=== PATIENT | male | born 1995 | race Caucasian/White ===

== ENCOUNTER 2017-06-05 01:44 | Emergency (ER) | payer OTHER ==
[~2017-06-05] VITALS: Ht 177.8 cm; Wt 79.6 kg
[2017-06-05 01:46] VITALS: Ht 177.8 cm; Wt 79.6 kg
--- NOTE | 2017-06-05 02:57 | RADRPT ---
PROCEDURE: XR right shoulder. CLINICAL INDICATION: Injury, pain. TECHNIQUE: AP Internal and external rotation views of the right shoulder were performed. COMPARISON: None. FINDINGS: There is normal osseous mineralization and alignment. No acute fracture or osseous lesion is identified. There are normal joints without evidence of arthritis or dislocation. The soft tissues are unremarkable. IMPRESSION: Unremarkable right shoulder. RPTAT: HRSR Physician Karin Date Time Electronically viewed and signed by Maurisio Wolff Physician on 06/05/2017 02:57 RR/
[2017-06-05] MEDS ORDERED: IBUP-1542 PO (03:09)
[2017-06-05] MEDS ORDERED: KETOROLAC 15 MG INJ IM STA (03:12)
--- NOTE | 2017-06-05 03:17 | ERD ---
ER Documentation Chief Complaint Chief Complaint right shoulder pain while playing football today HPI 22-year-old male patient with no significant past medical history presents to the ED complaining of right shoulder pain that occurred after playing football today. States that he was trying to catch a football and he accidentally fell and injured his right shoulder. Denies any fever, chills, nausea, vomiting, loss of sensation, loss of range of motion, weakness, numbness or tingling. Describes pain as achy and rates it a 8 out of 10. Denies any head or neck injuries. ROS All systems reviewed and are negative except as per history of present illness. Medications Home Meds Active Scripts Ibuprofen* (Motrin*) 600 Mg Tab, 600 MG PO Q6, #30 TAB Prov:ERICA JENNINGS PA-C 06/05/17 Allergies Allergies: Coded Allergies: No Known Allergy (Unverified , 06/05/17) PMhx/Soc History of Surgery: No Anesthesia Reaction: No Hx Neurological Disorder: No Hx Respiratory Disorders: No Hx Cardiac Disorders: No Hx Psychiatric Problems: No Hx Miscellaneous Medical Probl: No Hx Alcohol Use: No Hx Substance Use: No Hx Tobacco Use: Yes Smoking Status: Current every day smoker Physical Exam Vitals Vital Signs Date Time Temp Pulse Resp B/P Pulse Ox O2 Delivery O2 Flow Rate FiO2 06/05/17 01:46 97.2 121 20 142/83 99 Physical Exam Const: [id number]-tzsltglnh, well-nourished. In no acute distress. Head: Atraumatic, normocephalic Eyes: Normal Conjunctiva without injection ENT: Normal external ear, nose and mouth. Neck: Full range of motion. No meningismus. Resp: Clear to auscultation bilaterally. No wheezing, rhonchi, rales, or crackles. No accessory muscle use. No retractions. Cardio: Regular rate and rhythm, no murmurs Skin: No petechiae or rashes Back: No midline tenderness. No CVA tenderness. Ext: No cyanosis, or edema. Cap refill less than 2 seconds. Distal pulses intact bilaterally. Tenderness to palpation of the right humerus. No deformities noted. Patient was able to flex, extend, internally rotate and externally rotate patient's bilateral shoulders. Neur: Awake and alert. Normal gait and coordination. Muscle strength 5/5. Sensation intact bilaterally. Psych: Normal Mood and Affect Results 24 hrs Current Medications Medications (Trade) Dose Ordered Sig/Keiko Route PRN Reason Start Time Stop Time Status Last Admin Dose Admin Ketorolac Tromethamine (Toradol) 15 mg ONCE STAT IM 06/05/17 03:12 06/05/17 03:13 Cancel Procedures/MDM 22-year-old male patient with no significant past medical history presents to the ED complaining of a right shoulder injury that occurred earlier today. Patient is afebrile and nontoxic-appearing. Patient has normal vital signs. A right shoulder x-ray was ordered to further evaluate patient. Shoulder showed no evidence of fractures or dislocations. Patient likely sustained a right shoulder sprain versus contusion. Patient's extremity symptoms have stabilized while they have been evaluated in the department and are appropriate for outpatient follow up. No evidence of fractures, dislocations, compartment syndrome, neurologic injury, vascular injury, open joint, open fracture, tendon laceration, septic arthritis, osteomyelitis, DVT, foreign body, or other emergent conditions. Discharge medications: Ibuprofen Follow up with primary care physician in 1-2 days. Instructed patient to return to the ED sooner for any worsening symptoms. Patient's questions were answered. Patient understood and agreed with discharge plan. Patient discharged stable. Departure Diagnosis: Primary Impression: Shoulder injury Encounter type: initial encounter Laterality: right Qualified Code: S49.91XA - Injury of right shoulder, initial encounter Condition: Stable Patient Instructions: Shoulder Sprain , Shoulder Pain (Uncertain Cause) Referrals: COMMUNITY CLINICS YOU HAVE RECEIVED A MEDICAL SCREENING EXAM AND THE RESULTS INDICATE THAT YOU DO NOT HAVE A CONDITION THAT REQUIRES URGENT TREATMENT IN THE EMERGENCY DEPARTMENT. FURTHER EVALUATION AND TREATMENT OF YOUR CONDITION CAN WAIT UNTIL YOU ARE SEEN IN YOUR DOCTORS OFFICE WITHIN THE NEXT 1-2 DAYS. IT IS YOUR RESPONSIBILITY TO MAKE AN APPOINTMENT FOR FOLOW-UP CARE. IF YOU HAVE A PRIMARY DOCTOR --you should call your primary doctor and schedule an appointment IF YOU DO NOT HAVE A PRIMARY DOCTOR YOU CAN CALL OUR PHYSICIAN REFERRAL HOTLINE AT IF YOU CAN NOT AFFORD TO SEE A PHYSICIAN YOU CAN CHOSE FROM THE FOLLOWING [facility] [address] [facility]. [facility] [address] [facility] [address] [facility] [address] [facility]. [facility] [address] [facility] [address] [facility]. [facility] YOU HAVE RECEIVED A MEDICAL SCREENING EXAM AND THE RESULTS INDICATE THAT YOU DO NOT HAVE A CONDITION THAT REQUIRES URGENT TREATMENT IN THE EMERGENCY DEPARTMENT. FURTHER EVALUATION AND TREATMENT OF YOUR CONDITION CAN WAIT UNTIL YOU ARE SEEN IN YOUR DOCTORS OFFICE WITHIN THE NEXT 1-2 DAYS. IT IS YOUR RESPONSIBILITY TO MAKE AN APPOINTMENT FOR FOLOW-UP CARE. IF YOU HAVE A PRIMARY DOCTOR --you should call your primary doctor and schedule and appointment IF YOU DO NOT HAVE A PRIMARY DOCTOR YOU CAN CALL OUR PHYSICIAN REFERRAL HOTLINE AT . IF YOU CAN NOT AFFORD TO SEE A PHYSICIAN YOU CAN CHOSE FROM THE FOLLOWING [facility] INSTITUTIONS: [facility] [address] [place] [address] [facility] [address] [place] [address] [facility] + [facility] [address] [place] [address] [facility] URGENT CARE/SPECIALTIES Additional Instructions: Call your primary care doctor TOMORROW for an appointment during the next 2-3 days.See the doctor sooner or return here if your condition worsens before your appointment time. ERICA JENNINGS PA-C Jun 05, 2017 03:17
--- NOTE | 2017-06-05 03:17 | ERD ---
ER Documentation Chief Complaint Chief Complaint right shoulder pain while playing football today HPI 22-year-old male patient with no significant past medical history presents to the ED complaining of right shoulder pain that occurred after playing football today. States that he was trying to catch a football and he accidentally fell and injured his right shoulder. Denies any fever, chills, nausea, vomiting, loss of sensation, loss of range of motion, weakness, numbness or tingling. Describes pain as achy and rates it a 8 out of 10. Denies any head or neck injuries. ROS All systems reviewed and are negative except as per history of present illness. Medications Home Meds Active Scripts Ibuprofen* (Motrin*) 600 Mg Tab, 600 MG PO Q6, #30 TAB Prov:ERICA JENNINGS PA-C 06/05/17 Allergies Allergies: Coded Allergies: No Known Allergy (Unverified , 06/05/17) PMhx/Soc History of Surgery: No Anesthesia Reaction: No Hx Neurological Disorder: No Hx Respiratory Disorders: No Hx Cardiac Disorders: No Hx Psychiatric Problems: No Hx Miscellaneous Medical Probl: No Hx Alcohol Use: No Hx Substance Use: No Hx Tobacco Use: Yes Smoking Status: Current every day smoker Physical Exam Vitals Vital Signs Date Time Temp Pulse Resp B/P Pulse Ox O2 Delivery O2 Flow Rate FiO2 06/05/17 01:46 97.2 121 20 142/83 99 Physical Exam Const: Wdx-rpm-fzlhnnyxg, well-nourished. In no acute distress. Head: Atraumatic, normocephalic Eyes: Normal Conjunctiva without injection ENT: Normal external ear, nose and mouth. Neck: Full range of motion. No meningismus. Resp: Clear to auscultation bilaterally. No wheezing, rhonchi, rales, or crackles. No accessory muscle use. No retractions. Cardio: Regular rate and rhythm, no murmurs Skin: No petechiae or rashes Back: No midline tenderness. No CVA tenderness. Ext: No cyanosis, or edema. Cap refill less than 2 seconds. Distal pulses intact bilaterally. Tenderness to palpation of the right humerus. No deformities noted. Patient was able to flex, extend, internally rotate and externally rotate patient's bilateral shoulders. Neur: Awake and alert. Normal gait and coordination. Muscle strength 5/5. Sensation intact bilaterally. Psych: Normal Mood and Affect Results 24 hrs Current Medications Medications (Trade) Dose Ordered Sig/Keiko Route PRN Reason Start Time Stop Time Status Last Admin Dose Admin Ketorolac Tromethamine (Toradol) 15 mg ONCE STAT IM 06/05/17 03:12 06/05/17 03:13 Cancel Procedures/MDM 22-year-old male patient with no significant past medical history presents to the ED complaining of a right shoulder injury that occurred earlier today. Patient is afebrile and nontoxic-appearing. Patient has normal vital signs. A right shoulder x-ray was ordered to further evaluate patient. Shoulder showed no evidence of fractures or dislocations. Patient likely sustained a right shoulder sprain versus contusion. Patient's extremity symptoms have stabilized while they have been evaluated in the department and are appropriate for outpatient follow up. No evidence of fractures, dislocations, compartment syndrome, neurologic injury, vascular injury, open joint, open fracture, tendon laceration, septic arthritis, osteomyelitis, DVT, foreign body, or other emergent conditions. Discharge medications: Ibuprofen Follow up with primary care physician in 1-2 days. Instructed patient to return to the ED sooner for any worsening symptoms. Patient's questions were answered. Patient understood and agreed with discharge plan. Patient discharged stable. Departure Diagnosis: Primary Impression: Shoulder injury Encounter type: initial encounter Laterality: right Qualified Code: S49.91XA - Injury of right shoulder, initial encounter Condition: Stable Patient Instructions: Shoulder Sprain , Shoulder Pain (Uncertain Cause) Referrals: COMMUNITY CLINICS YOU HAVE RECEIVED A MEDICAL SCREENING EXAM AND THE RESULTS INDICATE THAT YOU DO NOT HAVE A CONDITION THAT REQUIRES URGENT TREATMENT IN THE EMERGENCY DEPARTMENT. FURTHER EVALUATION AND TREATMENT OF YOUR CONDITION CAN WAIT UNTIL YOU ARE SEEN IN YOUR DOCTORS OFFICE WITHIN THE NEXT 1-2 DAYS. IT IS YOUR RESPONSIBILITY TO MAKE AN APPOINTMENT FOR FOLOW-UP CARE. IF YOU HAVE A PRIMARY DOCTOR --you should call your primary doctor and schedule an appointment IF YOU DO NOT HAVE A PRIMARY DOCTOR YOU CAN CALL OUR PHYSICIAN REFERRAL HOTLINE AT IF YOU CAN NOT AFFORD TO SEE A PHYSICIAN YOU CAN CHOSE FROM THE FOLLOWING [facility] CL[facility]ICS [facility] [address] [facility]. [facility] [address] [facility] [address] [facility] [address] [facility] [address] [facility]. [facility] [address] [facility]. [facility] YOU HAVE RECEIVED A MEDICAL SCREENING EXAM AND THE RESULTS INDICATE THAT YOU DO NOT HAVE A CONDITION THAT REQUIRES URGENT TREATMENT IN THE EMERGENCY DEPARTMENT. FURTHER EVALUATION AND TREATMENT OF YOUR CONDITION CAN WAIT UNTIL YOU ARE SEEN IN YOUR DOCTORS OFFICE WITHIN THE NEXT 1-2 DAYS. IT IS YOUR RESPONSIBILITY TO MAKE AN APPOINTMENT FOR FOLOW-UP CARE. IF YOU HAVE A PRIMARY DOCTOR --you should call your primary doctor and schedule and appointment IF YOU DO NOT HAVE A PRIMARY DOCTOR YOU CAN CALL OUR PHYSICIAN REFERRAL HOTLINE AT . IF YOU CAN NOT AFFORD TO SEE A PHYSICIAN YOU CAN CHOSE FROM THE FOLLOWING [facility] INSTITUTIONS: [facility] [address] [place] [address] [facility] [address] [place] [address] [facility] [address] [place] [address] [facility] URGENT CARE/SPECIALTIES Additional Instructions: Call your primary care doctor TOMORROW for an appointment during the next 2-3 days.See the doctor sooner or return here if your condition worsens before your appointment time. ERICA JENNINGS PA-C Jun 05, 2017 03:17
--- NOTE | 2017-06-05 03:17 | ERD ---
ER Documentation Chief Complaint Chief Complaint right shoulder pain while playing football today HPI 22-year-old male patient with no significant past medical history presents to the ED complaining of right shoulder pain that occurred after playing football today. States that he was trying to catch a football and he accidentally fell and injured his right shoulder. Denies any fever, chills, nausea, vomiting, loss of sensation, loss of range of motion, weakness, numbness or tingling. Describes pain as achy and rates it a 8 out of 10. Denies any head or neck injuries. ROS All systems reviewed and are negative except as per history of present illness. Medications Home Meds Active Scripts Ibuprofen* (Motrin*) 600 Mg Tab, 600 MG PO Q6, #30 TAB Prov:ERICA JENNINGS PA-C 06/05/17 Allergies Allergies: Coded Allergies: No Known Allergy (Unverified , 06/05/17) PMhx/Soc History of Surgery: No Anesthesia Reaction: No Hx Neurological Disorder: No Hx Respiratory Disorders: No Hx Cardiac Disorders: No Hx Psychiatric Problems: No Hx Miscellaneous Medical Probl: No Hx Alcohol Use: No Hx Substance Use: No Hx Tobacco Use: Yes Smoking Status: Current every day smoker Physical Exam Vitals Vital Signs Date Time Temp Pulse Resp B/P Pulse Ox O2 Delivery O2 Flow Rate FiO2 06/05/17 01:46 97.2 121 20 142/83 99 Physical Exam Const: Hts-hgw-fwzjkmhly, well-nourished. In no acute distress. Head: Atraumatic, normocephalic Eyes: Normal Conjunctiva without injection ENT: Normal external ear, nose and mouth. Neck: Full range of motion. No meningismus. Resp: Clear to auscultation bilaterally. No wheezing, rhonchi, rales, or crackles. No accessory muscle use. No retractions. Cardio: Regular rate and rhythm, no murmurs Skin: No petechiae or rashes Back: No midline tenderness. No CVA tenderness. Ext: No cyanosis, or edema. Cap refill less than 2 seconds. Distal pulses intact bilaterally. Tenderness to palpation of the right humerus. No deformities noted. Patient was able to flex, extend, internally rotate and externally rotate patient's bilateral shoulders. Neur: Awake and alert. Normal gait and coordination. Muscle strength 5/5. Sensation intact bilaterally. Psych: Normal Mood and Affect Results 24 hrs Current Medications Medications (Trade) Dose Ordered Sig/Keiko Route PRN Reason Start Time Stop Time Status Last Admin Dose Admin Ketorolac Tromethamine (Toradol) 15 mg ONCE STAT IM 06/05/17 03:12 06/05/17 03:13 Cancel Procedures/MDM 22-year-old male patient with no significant past medical history presents to the ED complaining of a right shoulder injury that occurred earlier today. Patient is afebrile and nontoxic-appearing. Patient has normal vital signs. A right shoulder x-ray was ordered to further evaluate patient. Shoulder showed no evidence of fractures or dislocations. Patient likely sustained a right shoulder sprain versus contusion. Patient's extremity symptoms have stabilized while they have been evaluated in the department and are appropriate for outpatient follow up. No evidence of fractures, dislocations, compartment syndrome, neurologic injury, vascular injury, open joint, open fracture, tendon laceration, septic arthritis, osteomyelitis, DVT, foreign body, or other emergent conditions. Discharge medications: Ibuprofen Follow up with primary care physician in 1-2 days. Instructed patient to return to the ED sooner for any worsening symptoms. Patient's questions were answered. Patient understood and agreed with discharge plan. Patient discharged stable. Departure Diagnosis: Primary Impression: Shoulder injury Encounter type: initial encounter Laterality: right Qualified Code: S49.91XA - Injury of right shoulder, initial encounter Condition: Stable Patient Instructions: Shoulder Sprain , Shoulder Pain (Uncertain Cause) Referrals: COMMUNITY CLINICS YOU HAVE RECEIVED A MEDICAL SCREENING EXAM AND THE RESULTS INDICATE THAT YOU DO NOT HAVE A CONDITION THAT REQUIRES URGENT TREATMENT IN THE EMERGENCY DEPARTMENT. FURTHER EVALUATION AND TREATMENT OF YOUR CONDITION CAN WAIT UNTIL YOU ARE SEEN IN YOUR DOCTORS OFFICE WITHIN THE NEXT 1-2 DAYS. IT IS YOUR RESPONSIBILITY TO MAKE AN APPOINTMENT FOR FOLOW-UP CARE. IF YOU HAVE A PRIMARY DOCTOR --you should call your primary doctor and schedule an appointment IF YOU DO NOT HAVE A PRIMARY DOCTOR YOU CAN CALL OUR PHYSICIAN REFERRAL HOTLINE AT IF YOU CAN NOT AFFORD TO SEE A PHYSICIAN YOU CAN CHOSE FROM THE FOLLOWING [facility] [address] [facility]. [facility] [address] [facility]. [facility] [address] [facility]. [facility] [address] [facility]. [facility] [address] [facility]. [facility] [address] [facility]. [facility] YOU HAVE RECEIVED A MEDICAL SCREENING EXAM AND THE RESULTS INDICATE THAT YOU DO NOT HAVE A CONDITION THAT REQUIRES URGENT TREATMENT IN THE EMERGENCY DEPARTMENT. FURTHER EVALUATION AND TREATMENT OF YOUR CONDITION CAN WAIT UNTIL YOU ARE SEEN IN YOUR DOCTORS OFFICE WITHIN THE NEXT 1-2 DAYS. IT IS YOUR RESPONSIBILITY TO MAKE AN APPOINTMENT FOR FOLOW-UP CARE. IF YOU HAVE A PRIMARY DOCTOR --you should call your primary doctor and schedule and appointment IF YOU DO NOT HAVE A PRIMARY DOCTOR YOU CAN CALL OUR PHYSICIAN REFERRAL HOTLINE AT . IF YOU CAN NOT AFFORD TO SEE A PHYSICIAN YOU CAN CHOSE FROM THE FOLLOWING [facility] INSTITUTIONS: [facility] [address] [place] [address] [facility] [address] [place] [address] [facility] [address] [place] [address] [facility] URGENT CARE/SPECIALTIES Additional Instructions: Call your primary care doctor TOMORROW for an appointment during the next 2-3 days.See the doctor sooner or return here if your condition worsens before your appointment time. ERICA JENNINGS PA-C Jun 05, 2017 03:17
[2017-06-05 03:23] VITALS: BP 121/79; PULSE 78; RESP 18
== END 2017-06-05 03:23 | disposition home or self-care (01) ==
LOC: FTE 01:44
DX: S49.91XA Unspecified injury of right shoulder and upper arm, initial encounter (principal); F17.210 Nicotine dependence, cigarettes, uncomplicated; W21.01XA Struck by football, initial encounter; Y92.9 Unspecified place or not applicable
CPT/HCPCS: J1885